=== PATIENT | male | born 1975 | race African-American/Black ===

== ENCOUNTER 2017-01-16 09:03 | Emergency (ER) | payer MEDICAID ==
[~2017-01-16] VITALS: Ht 182.9 cm; Wt 84.8 kg
[2017-01-16 09:12] VITALS: BP 121/76
--- NOTE | 2017-01-16 10:00 | NUR ---
Patient ambulated to bed 04.
--- NOTE | 2017-01-16 10:01 | NUR ---
PATIENT PRESENTS TO ED WITH ABDOMINAL PAIN. PT STATES PAIN STARTED SINCE LAST NIGHT WITH N/V/D. SKIN IS PINK/WARM/DRY; AAOX4 WITH EVEN AND STEADY GAIT; LUNGS CLEAR BL; HR EVEN AND REGULAR; PT DENIES ANY FEVER, CP, SOB, OR COUGH AT THIS TIME; PATIENT STATES PAIN OF 7/10 AT THIS TIME; VSS; PATIENT POSITIONED FOR COMFORT; HOB ELEVATED; BEDRAILS UP X2; BED DOWN. ER MD MADE AWARE OF PT STATUS.
--- NOTE | 2017-01-16 10:25 | NUR ---
Dr. Spencer evaluating patient at bedside.
--- NOTE | 2017-01-16 10:43 | NUR ---
US at bedside.
[2017-01-16 10:57] LABS: HEMATOCRIT 43.3 % (36-52); HEMOGLOBIN 14.6 g/dL (12.0-18.0); MEAN CORPUSCULAR HEMOGLOBIN 31 pg (27-31); MEAN CORPUSCULAR HGB CONC 34 g/dL (33-37); MEAN CORPUSCULAR VOLUME 91 fL (80-94); PLATELET COUNT (AUTO) 175 K/uL (140-450); RED BLOOD CELL COUNT(AUTO) 4.78 MIL/uL (4.20-6.10); WHITE BLOOD COUNT (AUTO) 4.2 K/uL (4.8-10.8)
[2017-01-16 10:58] LABS: BASOPHILS % (AUTO) 0.7 % (0.0-2.0); EOSINOPHILS # (AUTO) 0.2 K/uL (0-0.4); EOSINOPHILS % (AUTO) 4.4 % (0.0-4.0); LYMPHOCYTES % (AUTO) 23.8 % (20.5-51.1); MONOCYTES # (AUTO) 0.3 K/uL (0.8-1.0); MONOCYTES % (AUTO) 7.5 % (1.7-9.3); NEUTROPHILS # (AUTO) 2.7 K/uL (1.8-7.7); NEUTROPHILS % (AUTO) 63.6 % (42.2-75.2)
[2017-01-16 11:07] LABS: ANION GAP 7.8 (8-16); CARBON DIOXIDE 30.9 mmol/L (21-32); POTASSIUM 3.7 mmol/L (3.5-5.1)
[2017-01-16 11:13] LABS: ALBUMIN 3.7 g/dL (3.4-5.0); TOTAL BILIRUBIN 0.7 mg/dL (0.0-1.0)
[2017-01-16 12:17] VITALS: BP 121/76
--- NOTE | 2017-01-16 12:18 | NUR ---
Patient discharged with v/s stable. Written and verbal after care instructions given and explained. Patient verbalized understanding. Ambulatory with steady gait. All questions addressed prior to discharge. Advised to follow up with PMD.
== END 2017-01-16 12:18 | disposition home or self-care (01) ==
LOC: MED 09:03
DX: K52.9 Noninfective gastroenteritis and colitis, unspecified (principal); E78.00 Pure hypercholesterolemia, unspecified; F17.210 Nicotine dependence, cigarettes, uncomplicated
CPT/HCPCS: 36415; 76705; 80053; 82150; 83615; 83690; 85025; 99285; Q0092

== ENCOUNTER 2017-05-24 04:10 | Emergency (ER) | payer MEDICAID ==
[~2017-05-24] VITALS: Ht 180.3 cm; Wt 86.2 kg
[2017-05-24 04:15] VITALS: BP 130/71
--- NOTE | 2017-05-24 04:23 | NUR ---
PT TAKEN TO BED 2.
--- NOTE | 2017-05-24 04:25 | NUR ---
41/M CAME IN W C/O PRODUCTIVE COUGH X 6 DAYS, SORE THROAT AND INTERMITTENT FEVERS, PT CURRETNLY AFEBRILE. ALL LUNG SOUNDS CBTA, 20 RR EVEN AND UNLABORED. DENIES SOB/CP, FEVER CHILLS, N/V/D. DENIES OTHER PMH/RX, REPORTS TAKING OTC TYLENOL/IBUPROFEN WITH MINIMAL RELIEF OF SYMPTOMS
[2017-05-24 04:37] VITALS: BP 132/78
--- NOTE | 2017-05-24 04:37 | NUR ---
Patient discharged with v/s stable. Written and verbal after care instructions given and explained. Patient alert, oriented and verbalized understanding of instructions. Ambulatory with steady gait. All questions addressed prior to discharge. ID band removed. Patient advised to follow up with PMD. Rx of MOTRIN AND CODEINE/PHENYLPHERINE/PROMETHAZINE given. Patient educated on indication of medication including possible reaction and side effects. Opportunity to ask questions provided and answered.
== END 2017-05-24 04:37 | disposition home or self-care (01) ==
LOC: MED 04:10
DX: J06.9 Acute upper respiratory infection, unspecified (principal); R03.0 Elevated blood-pressure reading, without diagnosis of hypertension
CPT/HCPCS: 99283

== ENCOUNTER 2018-07-21 02:15 | Emergency (ER) | payer MEDICAID ==
[~2018-07-21] VITALS: Ht 180.3 cm; Wt 81.8 kg
[2018-07-21 02:21] VITALS: BP 141/80
--- NOTE | 2018-07-21 02:23 | NUR ---
AMBULATED TO ER BED 5
[2018-07-21] MEDS ORDERED: KETOROLAC 60 MG/2 ML VIAL IM ONE (02:35)
--- NOTE | 2018-07-21 02:48 | NUR ---
PT TO ED WITH C/O LOWER BACK PAIN THAT RADIATES TO UPPER BACK. PT DENIES INJURY OR TRAUMA. NO OBVIOUS DEFORMITY NOTED. PT ABLE TO AMBULATE W OUT ASSIST. PT PLACED INTO BED, PEDNING MD WILSON.
--- NOTE | 2018-07-21 03:29 | NUR ---
PT BACK FROM CT
[2018-07-21] MEDS ORDERED: traMADol 50 MG TAB PO ONE (03:35)
[2018-07-21 03:52] VITALS: BP 141/80
--- NOTE | 2018-07-21 03:52 | NUR ---
Patient discharged with v/s stable. Written and verbal after care instructions given and explained. Patient alert, oriented and verbalized understanding of instructions. Ambulatory with steady gait. All questions addressed prior to discharge. ID band removed. Patient advised to follow up with PMD. Rx of ROBAXIN AND IBUPROFEN WAS given. Patient educated on indication of medication including possible reaction and side effects. Opportunity to ask questions provided and answered.
== END 2018-07-21 03:52 | disposition home or self-care (01) ==
LOC: MED 02:15
DX: S29.012A Strain of muscle and tendon of back wall of thorax, initial encounter (principal); R03.0 Elevated blood-pressure reading, without diagnosis of hypertension; X50.0XXA Overexertion from strenuous movement or load, initial encounter; Y93.89 Activity, other specified; Y92.89 Other specified places as the place of occurrence of the external cause; Y99.8 Other external cause status
CPT/HCPCS: 71046; 96372; 99283; J1885

== ENCOUNTER 2018-09-17 09:23 | Emergency (ER) | payer MEDICAID ==
[~2018-09-17] VITALS: Ht 182.9 cm; Wt 80.5 kg
[2018-09-17 09:25] VITALS: BP 151/92
--- NOTE | 2018-09-17 09:32 | NUR ---
PATIENT AMBULATED TO BED 4 AT THIS TIME.
--- NOTE | 2018-09-17 09:45 | NUR ---
C/O BACK OF SHOULDER PAIN X1 WEEK. PT STATES IT FEELS "LIKE HEART BURN IN BACK" AT 10/10. PT DENIES CP, SOB, NAUSEA, OR DIZZYNESS. PT HAS HAD PAIN FOR YEARS BUT HAS BECOME UNBERABLE THE PAST WEEK. PT STATES HE HAD TORN ROTATOR IN 2013 AND HE THINKS THAT IT IS COMPLETLY TORN. PT CAN LIFT ARM TO SHOULDER LEVEL, +CMS. PT ALSO REPORTS PAIN IN 1ST AND 2ND TOES ON RT FOOT.
[2018-09-17] MEDS ORDERED: KETOROLAC 30 MG/ML VIAL IM ONE (10:15)
[2018-09-17] MEDS ORDERED: DIAZEPAM 5 MG TAB PO ONE (10:15)
--- NOTE | 2018-09-17 10:51 | NUR ---
SLING LT SHOULDER ON BY EMT CASH-KEVAN PMS NOTED POST SLING. CAP REFILL WNL
[2018-09-17 10:52] VITALS: BP 145/89
--- NOTE | 2018-09-17 10:53 | NUR ---
Patient discharged with v/s stable. Written and verbal after care instructions given and explained. Patient alert, oriented and verbalized understanding of instructions. Ambulatory with steady gait. All questions addressed prior to discharge. ID band removed. Patient advised to follow up with PMD. Rx of NAPROSYN, VALIUM given. Patient educated on indication of medication including possible reaction and side effects. Opportunity to ask questions provided and answered.
== END 2018-09-17 10:53 | disposition home or self-care (01) ==
LOC: MED 09:23
DX: S46.012A Strain of muscle(s) and tendon(s) of the rotator cuff of left shoulder, initial encounter (principal); F17.210 Nicotine dependence, cigarettes, uncomplicated; X58.XXXA Exposure to other specified factors, initial encounter; Y93.B2 Activity, push-ups, pull-ups, sit-ups; Y92.89 Other specified places as the place of occurrence of the external cause; Y99.8 Other external cause status
CPT/HCPCS: 73030; 96372; 99283; J1885; Q0092